=== PATIENT | female | born 1950 | race Caucasian/White ===

== ENCOUNTER 2021-11-02 09:37 | Day surgery (SDC) | payer MEDICARE, BC ==
[2021-11-02] MEDS ORDERED: Marcaine Mpf 0.5% Vial 30 Ml IJ ONE (09:38)
[2021-11-02] MEDS ORDERED: LIDOCAINE HCL 1% 50 MG/5 ML VL PF IJ ONE (09:38)
[2021-11-02] MEDS ORDERED: Depo-Medrol 40 MG/ML IM ONE (09:38)
--- NOTE | 2021-11-02 12:27 | XRAY ---
5 seconds fluoroscopy time in surgery for intra-articular injection of the right knee.
--- NOTE | 2021-11-02 12:27 | XRAY ---
Indication: Right knee injection. Intraoperative fluoroscopy provided for 5 seconds. Single digital spot image submitted for interpretation demonstrates needle tip projecting over the right femur intracondylar notch. Small amount of contrast injected for needle tip placement. Correlate with intraoperative findings/report.
== END 2021-11-02 11:30 | disposition home or self-care (01) ==
LOC: SDC-PAIN 09:37
PROVIDERS: ATTEND Psychiatry & Neurology Pain Medicine
DX: M17.11 Unilateral primary osteoarthritis, right knee (principal); E11.9 Type 2 diabetes mellitus without complications; Z79.899 Other long term (current) drug therapy
CPT/HCPCS: 20610; 73560; 77002; 82947; J1030; J2001; Q9966

== ENCOUNTER 2022-06-28 13:31 | Observation (INO) | payer MEDICARE, BC ==
[2022-06-28 14:17] LABS: Absolute Neutrophil Ct (ANC) 4.43 x10^3/uL (1.4-6.9); BASOPHIL % 0.6 % (0.0-0.4); Basophil (Absolute #) 0.05 x10^3/uL (0-0.4); Eosinophil % 4.5 % (0.00-5.0); Eosinophil (Absolute #) 0.36 x10^3/uL (0-0.5); Hematocrit 44.7 % (35-47); Hemoglobin 14.6 g/dL (12.0-16.0); IMMATURE GRAN # 0.03 x10^3u/L (0.00-0.03); IMMATURE GRAN % 0.4 % (0.00-0.4); Lymphocyte (Absolute #) 2.59 x10^3/uL (1.0-4.6); Lymphocytes % 32.1 % (24.0-44.0); Mean Cell Volume 87.1 fL (78-100); Mean Corpuscular Hemoglobin 28.5 pg (26-32); Mean Corpuscular Hgb Concent. 32.7 g/dL (32-36); Mean Platelet Volume 11.3 fL (7.5-11.0); Monocyte (Absolute #) 0.62 x10^3/uL (0.0-1.3); Monocytes % 7.7 % (0.0-12.0); Neutrophil % 54.7 % (36.0-66.0); Platelet Count 282 x10^3/uL (150-450); Red Blood Count 5.13 x10^6/uL (4.1-5.4); Red Cell Distribution Width 15.3 % (11.5-14.0); White Blood Count 8.1 x10^3/uL (4.0-10.5)
--- NOTE | 2022-06-28 14:20 | XRAY ---
Indication: Dizziness, nausea, and headache. Multiple contiguous axial images obtained through the head without contrast. Comparison: March 30, 2022 Again age-appropriate global atrophy and mild periventricular degenerative micro-ischemia bilaterally. No acute intracranial hemorrhage, abnormal extra-axial fluid collection, or mass effect. Fourth ventricle is midline without hydrocephalus. Bony calvarium intact. Visualized paranasal sinuses and mastoid air cells are clear. Impression: Continued nonacute senile brain.
[2022-06-28 14:37] LABS: ALBUMIN 4.2 g/dL (3.5-5.0); ALKALINE PHOSPHATASE 67 U/L (38-126); ANION GAP 16.3 MEQ/L (5-15); BLOOD UREA NITROGEN 10 mg/dL (7-17); CHLORIDE 101 mmol/L (98-107); Calcium 9.7 mg/dL (8.4-10.2); Carbon Dioxide 22 mmol/L (22-30); Creatinine 1 0.69 mg/dL (0.52-1.04); EST GLOMERULAR FILTRATION RATE > 60.0 ML/MIN; Glucose 302 mg/dL (74-106); Potassium 3.7 mmol/L (3.5-5.1); SGOT/AST 37 U/L (14-36); SGPT/ALT 23 U/L (0-35); SODIUM 135 mmol/L (137-145); Total Protein 6.9 g/dL (6.3-8.2)
[2022-06-28] MEDS ORDERED: Sodium Chloride 0.9% 500 ML 500 ML IV ONE ×2 (14:54→14:59)
--- NOTE | 2022-06-28 14:57 | ERPHSYRPT ---
- History of Present Illness Time Seen by Provider: 06/28/22 13:55 Source: patient Exam Limitations: no limitations Patient Subjective Stated Complaint: PT states "I came to get a shot in my knee, a steroid and my sugar was to high, I told them I was a little dizzy and they told me I needed to come here." Triage Nursing Assessment: PT presented alert and oriented X 3, skin pwd. Pt ambulates with a slow gait and a limp. PT able to speak in clear full sentences pt in no apparent respiratory distress. Physician History: Patient 72-year-old female history of diabetes presents to our ED from infusion center for evaluation of dizziness. Patient states she went to the infusion center today to obtain steroid injection of her knees. Patient told the nurse at the infusion center that she felt a little dizzy. The nurse brought patient to our ED for an evaluation. Patient states she no longer feels dizzy on exam. She felt dizzy when she was in her car. Currently asymptomatic. No chest pain or shortness of breath. No nausea vomiting or diaphoresis. No diarrhea. No rash. No trauma. No numbness tingling or weakness. Patient voices no other complaints or concerns at this time. Portions of this note were created with voice recognition technology. There may be grammatical, spelling, punctuation or sound alike errors Timing/Duration: today Severity: moderate Modifying Factors: Improves With: nothing Associated Symptoms: denies symptoms Allergies/Adverse Reactions: Iodinated Contrast Media [Iodinated Contrast Media - IV Dye] Allergy (Verified 01/06/16 09:28) Tightness of Throat Home Medications: Bisoprolol/Hydrochlorothiazide [Ziac 10-6.25 mg Tablet] 1 each PO DAILY 01/15/15 [History] Duloxetine HCl [Cymbalta] 60 mg PO BID 01/15/15 [History] Loratadine [Claritin] 5 mg PO DAILY 01/15/15 [History] Pravastatin Sodium 40 mg PO HS 01/15/15 [History] Amlodipine Besylate 5 mg [Norvasc 5 mg] 5 mg PO HS 01/06/16 [History] Hydrocodone/APAP 10/325 mg [Shipman 10/325 MG Tablet] 1 tab PO Q6H PRN PRN 06/27/16 [History] Dapagliflozin Propanediol [Farxiga] 10 mg PO DAILY 06/28/22 [History] Hx Tetanus, Diphtheria Vaccination/Date Given: Yes Hx Influenza Vaccination/Date Given: Yes Hx Pneumococcal Vaccination/Date Given: Yes Immunizations Up to Date: Yes Travel Risk - International Travel Have you traveled outside of the country in past 3 weeks: No - Coronavirus Screening Are you exhibiting any of the following symptoms?: No Close contact with a COVID-19 positive Pt in past 14-21 Days: No - Vaccine Status Have you recieved a Covid-19 vaccination: Yes [employer]: [employer] - Vaccination Dates Date of 2cond Vaccination (if applicable): 2020 - Review of Systems Constitutional: No Symptoms, No Fever, No Chills Eyes: No Symptoms Ears, Nose, & Throat: No Symptoms Respiratory: No Symptoms, No Cough, No Dyspnea Cardiac: No Symptoms, No Chest Pain, No Edema, No Syncope Abdominal/Gastrointestinal: No Symptoms, No Abdominal Pain, No Nausea, No Vomiting, No Diarrhea Genitourinary Symptoms: No Symptoms, No Dysuria Musculoskeletal: No Symptoms, No Back Pain, No Neck Pain Skin: No Symptoms, No Rash Neurological: No Symptoms, No Dizziness, No Focal Weakness, No Sensory Changes Psychological: No Symptoms Endocrine: No Symptoms Hematologic/Lymphatic: No Symptoms Immunological/Allergic: No Symptoms All Other Systems: Reviewed and Negative - Past Medical History Pertinent Past Medical History: Yes Neurological History: Migraines ENT History: No Pertinent History Cardiac History: High Cholesterol, Hypertension Respiratory History: No Pertinent History Endocrine Medical History: No Pertinent History Musculoskeletal History: Arthritis GI Medical History: Other, GERD History: No Pertinent History Psycho-Social History: Depression Female Reproductive Disorders: Endometriosis Other Medical History: states takes cymbalta for pelvic pain - Past Surgical History Past Surgical History: Yes Neuro Surgical History: No Pertinent History Cardiac: No Pertinent History Respiratory: No Pertinent History Gastrointestinal: No Pertinent History Genitourinary: No Pertinent History Musculoskeletal: Orthopedic Surgery Female Surgical History: Hysterectomy Other Surgical History: tubal ,open lap.abd,colonoscopy, left knee replacement Apr 2013 - Social History Smoking Status: Never smoker Exposure to second hand smoke: No Drug Use: none Patient Lives Alone: Yes - Nursing Vital Signs Nursing Vital Signs: Initial Vital Signs Temperature 97.2 F 06/28/22 13:41 Pulse Rate 71 06/28/22 13:41 Respiratory Rate 20 06/28/22 13:41 Blood Pressure 157/80 06/28/22 13:41 O2 Sat by Pulse Oximetry 96 06/28/22 13:41 Pain Scale Pain Intensity 0 - Physical Exam General Appearance: no apparent distress, alert Eye Exam: PERRL/EOMI, eyes nml inspection Ears, Nose, Throat Exam: normal ENT inspection, TMs normal, pharynx normal, moist mucous membranes Neck Exam: normal inspection, non-tender, supple, full range of motion Respiratory Exam: normal breath sounds, lungs clear, No respiratory distress Cardiovascular Exam: regular rate/rhythm, normal heart sounds, normal peripheral pulses Gastrointestinal/Abdomen Exam: soft, normal bowel sounds, No tenderness, No mass Back Exam: normal inspection, normal range of motion, No CVA tenderness, No vertebral tenderness Extremity Exam: normal inspection, normal range of motion, pelvis stable Neurologic Exam: alert, oriented x 3, cooperative, normal mood/affect, nml cerebellar function, nml station & gait, sensation nml, No motor deficits Skin Exam: normal color, warm, dry, No rash Lymphatic Exam: No adenopathy SpO2 Interpretation: normal SpO2: 97 O2 Delivery: Room Air - Course Nursing assessment & vital signs reviewed: Yes EKG Interpreted by Me: RATE (59), Sinus Rhythm, NORMAL AXIS, NORMAL INTERVALS - CT Exams Head CT Interpretation: Tele-radiologist Report (Nonacute senile brain) Ordered Tests: Active Orders 24 hr Category Date Time Status Media/Instructional Designer STAT Care 06/28/22 13:43 Active EKG-ER Only STAT Care 06/28/22 13:42 Active IV Insertion STAT Care 06/28/22 13:42 Active Pulse Oximetry (ED) STAT Care 06/28/22 13:42 Active HEAD WITHOUT CONTRAST [CT] Stat Exams 06/28/22 13:42 Completed CBC W DIFF Stat Lab 06/28/22 14:10 Completed CMP Stat Lab 06/28/22 14:10 Completed POCT GLUCOSE Stat Lab 06/28/22 13:12 Completed TROPONIN Q4H Lab 06/28/22 14:10 Completed TROPONIN Q4H Lab 06/28/22 17:45 Ordered TROPONIN Q4H Lab 06/28/22 21:45 Ordered UA W/RFX UR CULTURE Stat Lab 06/28/22 16:30 Completed Transfer Order Routine Transfer 06/28/22 Ordered Medication Summary Discontinued Medications Generic Name Dose Route Start Last Admin Trade Name Freq PRN Reason Stop Dose Admin Aspirin 324 mg 06/28/22 18:53 Aspirin 81 Mg Tab.Chew PO 06/28/22 18:54 STAT ONE Sodium Chloride 500 mls @ 500 mls/hr 06/28/22 14:54 06/28/22 16:06 Sodium Chloride 0.9% 500 Ml IV 06/28/22 15:53 Infused .Q1H ONE Infusion Sodium Chloride Confirm 06/28/22 14:59 Sodium Chloride 0.9% 500 Ml Administered 06/28/22 15:00 Dose 500 mls @ ud IV .STK-MED ONE Lab/Rad Data: Laboratory Result Diagrams 06/28/22 14:10 06/28/22 14:10 Laboratory Results 06/28/22 06/28/22 06/28/22 Range/Units 16:30 14:10 14:10 WBC (4.0-10.5) x10^3/uL RBC (4.1-5.4) x10^6/uL Hgb (12.0-16.0) g/dL Hct (35-47) % MCV (78-100) fL MCH (26-32) pg MCHC (32-36) g/dL RDW (11.5-14.0) % Plt Count (150-450) x10^3/uL MPV (7.5-11.0) fL Gran % (36.0-66.0) % Immature Gran % (Auto) (0.00-0.4) % Nucleat RBC Rel Count (0.00-0.1) % Eos # (Auto) (0-0.5) x10^3/uL Immature Gran # (Auto) (0.00-0.03) x10^3u/L Absolute Lymphs (auto) (1.0-4.6) x10^3/uL Absolute Monos (auto) (0.0-1.3) x10^3/uL Absolute Nucleated RBC (0.00-0.01) x10^3u/L Lymphocytes % (24.0-44.0) % Monocytes % (0.0-12.0) % Eosinophils % (0.00-5.0) % Basophils % (0.0-0.4) % Absolute Granulocytes (1.4-6.9) x10^3/uL Basophils # (0-0.4) x10^3/uL Sodium 135 L (137-145) mmol/L Potassium 3.7 (3.5-5.1) mmol/L Chloride 101 (98-107) mmol/L Carbon Dioxide 22 (22-30) mmol/L Anion Gap 16.3 H (5-15) MEQ/L BUN 10 (7-17) mg/dL Creatinine 0.69 (0.52-1.04) mg/dL Estimated GFR > 60.0 ML/MIN Glucose 302 H (74-106) mg/dL POC Glucometer (74 to 106) mg/dL Calcium 9.7 (8.4-10.2) mg/dL Total Bilirubin 0.70 (0.2-1.3) mg/dL AST 37 H (14-36) U/L ALT 23 (0-35) U/L Alkaline Phosphatase 67 (38-126) U/L Troponin I < 0.012 (0.000-0.034) ng/mL Serum Total Protein 6.9 (6.3-8.2) g/dL Albumin 4.2 (3.5-5.0) g/dL Urine Color Yellow (Yellow) Urine Appearance Cloudy A (Clear) Urine pH 5.5 (4.6-8.0) Ur Specific [place] >=1.030 A (1.005-1.030) Urine Protein Negative (Negative) Urine Glucose (UA) >=1000 A (Negative) mg/dL Urine Ketones Negative (Negative) Urine Blood Negative (Negative) Urine Nitrite Negative (Negative) Urine Bilirubin Negative (Negative) Urine Urobilinogen 0.2 (0.2) mg/dL Ur Leukocyte Esterase Negative (Negative) U Hyaline Cast (Auto) NONE SEEN (0-2) /LPF Urine Microscopic RBC 0-2 (0-5) /HPF Urine Microscopic WBC 0-2 (0-5) /HPF Ur Epithelial Cells None Seen (None Seen) /HPF Urine Bacteria None Seen (None Seen) /HPF Urine Culture Reflexed NO (NO) 06/28/22 06/28/22 Range/Units 14:10 13:12 WBC 8.1 (4.0-10.5) x10^3/uL RBC 5.13 (4.1-5.4) x10^6/uL Hgb 14.6 (12.0-16.0) g/dL Hct 44.7 (35-47) % MCV 87.1 (78-100) fL MCH 28.5 (26-32) pg MCHC 32.7 (32-36) g/dL RDW 15.3 H (11.5-14.0) % Plt Count 282 (150-450) x10^3/uL MPV 11.3 H (7.5-11.0) fL Gran % 54.7 (36.0-66.0) % Immature Gran % (Auto) 0.4 (0.00-0.4) % Nucleat RBC Rel Count 0.0 (0.00-0.1) % Eos # (Auto) 0.36 (0-0.5) x10^3/uL Immature Gran # (Auto) 0.03 (0.00-0.03) x10^3u/L Absolute Lymphs (auto) 2.59 (1.0-4.6) x10^3/uL Absolute Monos (auto) 0.62 (0.0-1.3) x10^3/uL Absolute Nucleated RBC 0.00 (0.00-0.01) x10^3u/L Lymphocytes % 32.1 (24.0-44.0) % Monocytes % 7.7 (0.0-12.0) % Eosinophils % 4.5 (0.00-5.0) % Basophils % 0.6 (0.0-0.4) % Absolute Granulocytes 4.43 (1.4-6.9) x10^3/uL Basophils # 0.05 (0-0.4) x10^3/uL Sodium (137-145) mmol/L Potassium (3.5-5.1) mmol/L Chloride (98-107) mmol/L Carbon Dioxide (22-30) mmol/L Anion Gap (5-15) MEQ/L BUN (7-17) mg/dL Creatinine (0.52-1.04) mg/dL Estimated GFR ML/MIN Glucose (74-106) mg/dL POC Glucometer 315 H (74 to 106) mg/dL Calcium (8.4-10.2) mg/dL Total Bilirubin (0.2-1.3) mg/dL AST (14-36) U/L ALT (0-35) U/L Alkaline Phosphatase (38-126) U/L Troponin I (0.000-0.034) ng/mL Serum Total Protein (6.3-8.2) g/dL Albumin (3.5-5.0) g/dL Urine Color (Yellow) Urine Appearance (Clear) Urine pH (4.6-8.0) Ur Specific [place] (1.005-1.030) Urine Protein (Negative) Urine Glucose (UA) (Negative) mg/dL Urine Ketones (Negative) Urine Blood (Negative) Urine Nitrite (Negative) Urine Bilirubin (Negative) Urine Urobilinogen (0.2) mg/dL Ur Leukocyte Esterase (Negative) U Hyaline Cast (Auto) (0-2) /LPF Urine Microscopic RBC (0-5) /HPF Urine Microscopic WBC (0-5) /HPF Ur Epithelial Cells (None Seen) /HPF Urine Bacteria (None Seen) /HPF Urine Culture Reflexed (NO) - Progress Progress: improved Progress Note: Patient is a 72-year-old female presents emergency department as a referral from the infusion center for evaluation of possible TIA. Patient states that she had an episode of dizziness unsteady gait and blurred vision that lasted several minutes upon her arrival to our [facility] for an infusion center procedure. Patient told the infusion center nurse about her experience and patient was brought to our ED for possible TIA. Patient has a history of diabetes hypertension obesity. Physical exam is normal. No neurologic findings to speak of. Patient's complaint was acute. Complexity of complaint is moderate. Comorbidities as stated above. Work-up entails EKG CT head CBC CMP COVID troponin UA. CT head shows no acute intracranial pathology. EKG is normal sinus rhythm. CBC CMP essentially nonremarkable. CMP reveals hyperglycemia. UA shows glucosuria. Troponin negative. Patient received a dose of aspirin and normal saline. We consulted telemetry neuro who feels patient had a TIA. Teleneurologist is advising admission. Case discussed with Dr. Stoll who accepts admission to observation. Plan of care discussed with patient. She agrees to admission to [facility] for further evaluation and treatment. Level of EM service provided was high. Complexity of problem addressed is moderate. Complexity of data reviewed and analyzed is moderate. Risk of complication and or risk of morbidity/mortality of patient management is low. No critical care time. Patient served as independent historian. There was some delay in performing the teleneurology consultation due to issues pertaining to our communication with the teleneurologist. Patient's working diagnosis at this time is a TIA. Hyperglycemia. Patient voices no other complaints or concerns at this time. Portions of this note were created with voice recognition technology. There may be grammatical, spelling, punctuation or sound alike errors 06/28/22 18:56 Counseled pt/family regarding: lab results, diagnosis, need for follow-up, rad results Medical Desision Making - Diagnostic Testing Diagnostic Testing: Diagnostic tests were ordered,analyzed, and reviewed by me and used in my medica l decision making for this patient. Radiologic studies (if ordered) were read by me initially then discussed with the radiologist . - Departure Departure Disposition: Home Clinical Impression: Dizziness, Hyperglycemia, Hyponatremia, Glucosuria, TIA (transient ischemic attack) Condition: Stable Critical Care Time: No Referrals: RUSSEL SPICER [Primary Care Provider] - Follow up/PCP as directed
[2022-06-28 16:43] LABS: Appearance Cloudy (Clear); Bacteria None Seen /HPF (None Seen); Bilirubin Negative (Negative); Blood Negative (Negative); Epithelial Cells None Seen /HPF (None Seen); Glucose, Urine >=1000 mg/dL (Negative); Hyaline Casts NONE SEEN /LPF (0-2); Ketones Negative (Negative); Leukocyte Esterase Negative (Negative); Nitrite Negative (Negative); Ph 5.5 (4.6-8.0); Protein,Urine Dip Negative (Negative); RBC 0-2 /HPF (0-5); Specific Gravity >=1.030 (1.005-1.030); Urobilinogen 0.2 mg/dL (0.2); WBC 0-2 /HPF (0-5)
[2022-06-28 16:46] LABS: ADD URINE CULTURE? NO (NO)
[2022-06-28] MEDS ORDERED: BABY ASPIRIN 81 MG CHEW PO ONE (18:53)
[2022-06-28] MEDS ORDERED: TYLENOL EXTRA STRENGTH 500 MG ONE (19:25)
[2022-06-28] MEDS ORDERED: TYLENOL EXTRA STRENGTH 500 MG PO ONE (19:26)
[2022-06-28 20:09] LABS: INFLUENZA A NEGATIVE (NEGATIVE); INFLUENZA B NEGATIVE (NEGATIVE); RESPIRATORY SYNCTIAL VIRUS NEGATIVE (Negative); SARS-CoV-2 Xpert Express NEGATIVE (NEGATIVE)
[2022-06-28] MEDS ORDERED: MILK OF MAGNESIA 30 ML PO PRN (20:55)
[2022-06-28] MEDS ORDERED: TYLENOL 325 MG PO PRN (20:55)
[2022-06-28] MEDS ORDERED: Zofran 4 MG/2 ML VIAL IV PRN (20:55)
[2022-06-28] MEDS ORDERED: Senokot-S Tablet PO PRN (20:55)
[2022-06-28] MEDS ORDERED: MAALOX ES 30 ML UNIT DOSE PO PRN (20:55)
[2022-06-29] MEDS ORDERED: AMITRIPTYLINE 25 MG TABLET PO SCH (00:40)
[2022-06-29] MEDS ORDERED: NORVASC 5 MG PO SCH (00:40)
[2022-06-29] MEDS ORDERED: CLONIDINE 0.1 MG TABLET PO SCH (00:41)
[2022-06-29] MEDS ORDERED: Cymbalta 30 MG Capsule PO ONE (00:42)
[2022-06-29] MEDS ORDERED: ATARAX 25 MG PO SCH (00:45)
[2022-06-29] MEDS ORDERED: Zanaflex 4 MG PO PRN (00:46)
[2022-06-29] MEDS ORDERED: ZOCOR 20MG PO SCH (00:50)
[2022-06-29] MEDS: NORCO 5/325 MG PO PRN ×2 (01:27→08:45)
[2022-06-29 06:13] LABS: Risk Ratio 2.9
[2022-06-29 07:24] VITALS: BP 144/87; PULSE 120; O2SAT 98
--- NOTE | 2022-06-29 08:28 | PCM.HP ---
History of Present Illness - Chief Complaint Chief Complaint: TIA, dizziness History of Present Illness: is a 72 year old female who came as an outpatient for an injection with elevated blood sugar and feeling dizzy yesterday so was sent to the ER, she denies any slurred speech, no numbness, tingling, weakness or paresthesias. She denies any complaints this morning other than being tired because she didn't sleep well overnight and insists to go home as early as possible today. She has had previous cardiac cath which was negative with Dr Yu, no hx of CVA or TIA. glucosuria was noted on admit but expected with jardiance. - Review of Systems Constitutional: No Fever, No Chills Respiratory: No Cough, No Short Of Breath Cardiac: No Chest Pain, No Edema, No Syncope Genitourinary Symptoms: No Dysuria Neurological: Dizziness, No Focal Weakness, No Gait Changes, No Paralysis, No Parasthesia, No Sensory Changes All Other Systems: Reviewed and Negative Medications & Allergies Home Medications: Home Medication List Bisoprolol/Hydrochlorothiazide [Ziac 10-6.25 mg Tablet] 1 each PO DAILY 01/15/15 [History Confirmed 06/28/22] Duloxetine HCl [Cymbalta] 60 mg PO BID 01/15/15 [History Confirmed 06/28/22] Loratadine [Claritin] 5 mg PO DAILY 01/15/15 [History Confirmed 06/28/22] Pravastatin Sodium 40 mg PO HS 01/15/15 [History Confirmed 06/28/22] Amlodipine Besylate 5 mg [Norvasc 5 mg] 2.5 mg PO HS 01/06/16 [History Confirmed 06/28/22] Hydrocodone/APAP 10/325 mg [[place] 10/325 MG Tablet] 0.5 tab PO Q6H PRN PRN 06/27/16 [History Confirmed 06/28/22] Amitriptyline HCl 25 mg [Amitriptyline 25 mg Tablet] 25 mg PO HS 06/28/22 [History Confirmed 06/28/22] Atorvastatin Calcium [Lipitor 40Mg] 40 mg PO DAILY 06/28/22 [History Confirmed 06/28/22] Doxepin HCl 10 mg PO HS 06/28/22 [History Confirmed 06/28/22] Empagliflozin [Jardiance] 10 mg PO DAILY 06/28/22 [History Confirmed 06/28/22] Oxybutynin Chloride [Oxybutynin Chloride ER] 15 mg PO DAILY 06/28/22 [History Confirmed 06/28/22] Pregabalin 75 mg PO BID 06/28/22 [History Confirmed 06/28/22] Tizanidine HCl 4 mg [Zanaflex 4 MG] 4 mg PO TID PRN PRN 06/28/22 [History Confirmed 06/28/22] cloNIDine HCL [Clonidine HCl] 0.1 mg PO BID 06/28/22 [History Confirmed 06/28/22] hydrOXYzine HCL [Hydroxyzine HCl] 25 mg PO HS 06/28/22 [History Confirmed 06/28/22] lisinopriL [Lisinopril] 5 mg PO DAILY 06/28/22 [History Confirmed 06/28/22] Allergies/Adverse Reactions: Allergies Allergy/AdvReac Type Severity Reaction Status Date / Time Iodinated Contrast Media Allergy Tightness Verified 01/06/16 09:28 [Iodinated Contrast Media - of Throat IV Dye] - Past Medical History Past Medical History: Yes Neurological History: Migraines ENT History: Cataracts Cardiac History: High Cholesterol, Hypertension Respiratory History: No Pertinent History Endocrine Medical History: Diabetes Type II Musculoskelatal History: Arthritis GI Medical History: No Pertinent History History: No Pertinent History Pyscho-Social History: Depression Reproductive Disorders: Endometriosis Comment: states takes cymbalta for pelvic pain - Female History Are you now?: No - Past Surgical History Past Surgical History: Yes Neuro Surgical History: No Pertinent History Cardiac History: No Pertinent History Respiratory Surgery: No Pertinent History GI Surgical History: Appendectomy Genitourinary Surgical Hx: No Pertinent History Musculskeletal Surgical Hx: Orthopedic Surgery Female Surgical History: Hysterectomy Other Surgical History: tubal ,open lap.abd,colonoscopy, left knee replacement Apr 2013 - Social History Smoking Status: Never smoker Exposure to second hand smoke: No Alcohol: None Drug Use: none - Physical Exam Vital Signs: Vital Signs - 24 hr Temp Pulse Resp BP Pulse Ox 06/29/22 07:24 97.5 F 120 H 17 144/87 98 06/29/22 04:00 97.3 F 78 18 126/63 95 06/29/22 00:00 18 06/28/22 23:10 98.4 F 76 20 95/56 96 06/28/22 21:21 97.8 F 75 20 134/87 96 06/28/22 20:00 66 18 178/79 95 06/28/22 19:02 97 06/28/22 19:00 70 171/115 96 06/28/22 18:08 70 19 148/70 95 06/28/22 17:05 67 23 150/75 93 L 06/28/22 16:06 59 L 19 164/88 93 L 06/28/22 14:40 97.2 F 53 L 20 98/58 97 06/28/22 14:17 93 L 06/28/22 13:41 97.2 F 71 20 157/80 96 General Appearance: no apparent distress, obese Neurologic Exam: alert, oriented x 3, cooperative, pattern grader II-XII nml as tested, normal mood/affect, nml cerebellar function, sensation nml, No motor deficits, No motor weakness, No slurred speech Respiratory Exam: normal breath sounds, lungs clear, No respiratory distress Cardiovascular Exam: regular rate/rhythm, normal heart sounds, normal peripheral pulses Gastrointestinal/Abdomen Exam: soft, normal bowel sounds, No tenderness, No mass Extremity Exam: normal inspection, normal range of motion, pelvis stable Skin Exam: normal color, warm, dry, No rash Results - Labs Lab/Micro Results: Lab Results-Last 24 Hours 06/28/22 06/28/22 06/28/22 Range/Units 13:12 14:10 14:10 WBC 8.1 (4.0-10.5) x10^3/uL RBC 5.13 (4.1-5.4) x10^6/uL Hgb 14.6 (12.0-16.0) g/dL Hct 44.7 (35-47) % MCV 87.1 (78-100) fL MCH 28.5 (26-32) pg MCHC 32.7 (32-36) g/dL RDW 15.3 H (11.5-14.0) % Plt Count 282 (150-450) x10^3/uL MPV 11.3 H (7.5-11.0) fL Gran % 54.7 (36.0-66.0) % Immature Gran % (Auto) 0.4 (0.00-0.4) % Nucleat RBC Rel Count 0.0 (0.00-0.1) % Eos # (Auto) 0.36 (0-0.5) x10^3/uL Immature Gran # (Auto) 0.03 (0.00-0.03) x10^3u/L Absolute Lymphs (auto) 2.59 (1.0-4.6) x10^3/uL Absolute Monos (auto) 0.62 (0.0-1.3) x10^3/uL Absolute Nucleated RBC 0.00 (0.00-0.01) x10^3u/L Lymphocytes % 32.1 (24.0-44.0) % Monocytes % 7.7 (0.0-12.0) % Eosinophils % 4.5 (0.00-5.0) % Basophils % 0.6 (0.0-0.4) % Absolute Granulocytes 4.43 (1.4-6.9) x10^3/uL Basophils # 0.05 (0-0.4) x10^3/uL Sodium 135 L (137-145) mmol/L Potassium 3.7 (3.5-5.1) mmol/L Chloride 101 (98-107) mmol/L Carbon Dioxide 22 (22-30) mmol/L Anion Gap 16.3 H (5-15) MEQ/L BUN 10 (7-17) mg/dL Creatinine 0.69 (0.52-1.04) mg/dL Estimated GFR > 60.0 ML/MIN Glucose 302 H (74-106) mg/dL POC Glucometer 315 H (74 to 106) mg/dL Calcium 9.7 (8.4-10.2) mg/dL Total Bilirubin 0.70 (0.2-1.3) mg/dL AST 37 H (14-36) U/L ALT 23 (0-35) U/L Alkaline Phosphatase 67 (38-126) U/L Troponin I (0.000-0.034) ng/mL Serum Total Protein 6.9 (6.3-8.2) g/dL Albumin 4.2 (3.5-5.0) g/dL Triglycerides (30-150) mg/dL Cholesterol (50-200) mg/dL LDL Cholesterol (30-100) mg/dL HDL Cholesterol (40-60) mg/dL Heart Disease Risk Ratio Urine Color (Yellow) Urine Appearance (Clear) Urine pH (4.6-8.0) Ur Specific [place] (1.005-1.030) Urine Protein (Negative) Urine Glucose (UA) (Negative) mg/dL Urine Ketones (Negative) Urine Blood (Negative) Urine Nitrite (Negative) Urine Bilirubin (Negative) Urine Urobilinogen (0.2) mg/dL Ur Leukocyte Esterase (Negative) U Hyaline Cast (Auto) (0-2) /LPF Urine Microscopic RBC (0-5) /HPF Urine Microscopic WBC (0-5) /HPF Ur Epithelial Cells (None Seen) /HPF Urine Bacteria (None Seen) /HPF Urine Culture Reflexed (NO) Influenza Type A Ag (NEGATIVE) Influenza Type B Ag (NEGATIVE) RSV (PCR) (Negative) SARS-CoV-2 (PCR) (NEGATIVE) 06/28/22 06/28/22 06/28/22 Range/Units 14:10 16:30 19:20 WBC (4.0-10.5) x10^3/uL RBC (4.1-5.4) x10^6/uL Hgb (12.0-16.0) g/dL Hct (35-47) % MCV (78-100) fL MCH (26-32) pg MCHC (32-36) g/dL RDW (11.5-14.0) % Plt Count (150-450) x10^3/uL MPV (7.5-11.0) fL Gran % (36.0-66.0) % Immature Gran % (Auto) (0.00-0.4) % Nucleat RBC Rel Count (0.00-0.1) % Eos # (Auto) (0-0.5) x10^3/uL Immature Gran # (Auto) (0.00-0.03) x10^3u/L Absolute Lymphs (auto) (1.0-4.6) x10^3/uL Absolute Monos (auto) (0.0-1.3) x10^3/uL Absolute Nucleated RBC (0.00-0.01) x10^3u/L Lymphocytes % (24.0-44.0) % Monocytes % (0.0-12.0) % Eosinophils % (0.00-5.0) % Basophils % (0.0-0.4) % Absolute Granulocytes (1.4-6.9) x10^3/uL Basophils # (0-0.4) x10^3/uL Sodium (137-145) mmol/L Potassium (3.5-5.1) mmol/L Chloride (98-107) mmol/L Carbon Dioxide (22-30) mmol/L Anion Gap (5-15) MEQ/L BUN (7-17) mg/dL Creatinine (0.52-1.04) mg/dL Estimated GFR ML/MIN Glucose (74-106) mg/dL POC Glucometer (74 to 106) mg/dL Calcium (8.4-10.2) mg/dL Total Bilirubin (0.2-1.3) mg/dL AST (14-36) U/L ALT (0-35) U/L Alkaline Phosphatase (38-126) U/L Troponin I < 0.012 < 0.012 (0.000-0.034) ng/mL Serum Total Protein (6.3-8.2) g/dL Albumin (3.5-5.0) g/dL Triglycerides (30-150) mg/dL Cholesterol (50-200) mg/dL LDL Cholesterol (30-100) mg/dL HDL Cholesterol (40-60) mg/dL Heart Disease Risk Ratio Urine Color Yellow (Yellow) Urine Appearance Cloudy A (Clear) Urine pH 5.5 (4.6-8.0) Ur Specific [place] >=1.030 A (1.005-1.030) Urine Protein Negative (Negative) Urine Glucose (UA) >=1000 A (Negative) mg/dL Urine Ketones Negative (Negative) Urine Blood Negative (Negative) Urine Nitrite Negative (Negative) Urine Bilirubin Negative (Negative) Urine Urobilinogen 0.2 (0.2) mg/dL Ur Leukocyte Esterase Negative (Negative) U Hyaline Cast (Auto) NONE SEEN (0-2) /LPF Urine Microscopic RBC 0-2 (0-5) /HPF Urine Microscopic WBC 0-2 (0-5) /HPF Ur Epithelial Cells None Seen (None Seen) /HPF Urine Bacteria None Seen (None Seen) /HPF Urine Culture Reflexed NO (NO) Influenza Type A Ag (NEGATIVE) Influenza Type B Ag (NEGATIVE) RSV (PCR) (Negative) SARS-CoV-2 (PCR) (NEGATIVE) 06/28/22 06/28/22 06/28/22 Range/Units 19:20 21:16 23:00 WBC (4.0-10.5) x10^3/uL RBC (4.1-5.4) x10^6/uL Hgb (12.0-16.0) g/dL Hct (35-47) % MCV (78-100) fL MCH (26-32) pg MCHC (32-36) g/dL RDW (11.5-14.0) % Plt Count (150-450) x10^3/uL MPV (7.5-11.0) fL Gran % (36.0-66.0) % Immature Gran % (Auto) (0.00-0.4) % Nucleat RBC Rel Count (0.00-0.1) % Eos # (Auto) (0-0.5) x10^3/uL Immature Gran # (Auto) (0.00-0.03) x10^3u/L Absolute Lymphs (auto) (1.0-4.6) x10^3/uL Absolute Monos (auto) (0.0-1.3) x10^3/uL Absolute Nucleated RBC (0.00-0.01) x10^3u/L Lymphocytes % (24.0-44.0) % Monocytes % (0.0-12.0) % Eosinophils % (0.00-5.0) % Basophils % (0.0-0.4) % Absolute Granulocytes (1.4-6.9) x10^3/uL Basophils # (0-0.4) x10^3/uL Sodium (137-145) mmol/L Potassium (3.5-5.1) mmol/L Chloride (98-107) mmol/L Carbon Dioxide (22-30) mmol/L Anion Gap (5-15) MEQ/L BUN (7-17) mg/dL Creatinine (0.52-1.04) mg/dL Estimated GFR ML/MIN Glucose (74-106) mg/dL POC Glucometer 184 H (74 to 106) mg/dL Calcium (8.4-10.2) mg/dL Total Bilirubin (0.2-1.3) mg/dL AST (14-36) U/L ALT (0-35) U/L Alkaline Phosphatase (38-126) U/L Troponin I < 0.012 (0.000-0.034) ng/mL Serum Total Protein (6.3-8.2) g/dL Albumin (3.5-5.0) g/dL Triglycerides (30-150) mg/dL Cholesterol (50-200) mg/dL LDL Cholesterol (30-100) mg/dL HDL Cholesterol (40-60) mg/dL Heart Disease Risk Ratio Urine Color (Yellow) Urine Appearance (Clear) Urine pH (4.6-8.0) Ur Specific [place] (1.005-1.030) Urine Protein (Negative) Urine Glucose (UA) (Negative) mg/dL Urine Ketones (Negative) Urine Blood (Negative) Urine Nitrite (Negative) Urine Bilirubin (Negative) Urine Urobilinogen (0.2) mg/dL Ur Leukocyte Esterase (Negative) U Hyaline Cast (Auto) (0-2) /LPF Urine Microscopic RBC (0-5) /HPF Urine Microscopic WBC (0-5) /HPF Ur Epithelial Cells (None Seen) /HPF Urine Bacteria (None Seen) /HPF Urine Culture Reflexed (NO) Influenza Type A Ag NEGATIVE (NEGATIVE) Influenza Type B Ag NEGATIVE (NEGATIVE) RSV (PCR) NEGATIVE (Negative) SARS-CoV-2 (PCR) NEGATIVE (NEGATIVE) 06/29/22 06/29/22 Range/Units 05:39 07:00 WBC (4.0-10.5) x10^3/uL RBC (4.1-5.4) x10^6/uL Hgb (12.0-16.0) g/dL Hct (35-47) % MCV (78-100) fL MCH (26-32) pg MCHC (32-36) g/dL RDW (11.5-14.0) % Plt Count (150-450) x10^3/uL MPV (7.5-11.0) fL Gran % (36.0-66.0) % Immature Gran % (Auto) (0.00-0.4) % Nucleat RBC Rel Count (0.00-0.1) % Eos # (Auto) (0-0.5) x10^3/uL Immature Gran # (Auto) (0.00-0.03) x10^3u/L Absolute Lymphs (auto) (1.0-4.6) x10^3/uL Absolute Monos (auto) (0.0-1.3) x10^3/uL Absolute Nucleated RBC (0.00-0.01) x10^3u/L Lymphocytes % (24.0-44.0) % Monocytes % (0.0-12.0) % Eosinophils % (0.00-5.0) % Basophils % (0.0-0.4) % Absolute Granulocytes (1.4-6.9) x10^3/uL Basophils # (0-0.4) x10^3/uL Sodium (137-145) mmol/L Potassium (3.5-5.1) mmol/L Chloride (98-107) mmol/L Carbon Dioxide (22-30) mmol/L Anion Gap (5-15) MEQ/L BUN (7-17) mg/dL Creatinine (0.52-1.04) mg/dL Estimated GFR ML/MIN Glucose (74-106) mg/dL POC Glucometer 224 H (74 to 106) mg/dL Calcium (8.4-10.2) mg/dL Total Bilirubin (0.2-1.3) mg/dL AST (14-36) U/L ALT (0-35) U/L Alkaline Phosphatase (38-126) U/L Troponin I (0.000-0.034) ng/mL Serum Total Protein (6.3-8.2) g/dL Albumin (3.5-5.0) g/dL Triglycerides 103 (30-150) mg/dL Cholesterol 158 (50-200) mg/dL LDL Cholesterol 71 (30-100) mg/dL HDL Cholesterol 55 (40-60) mg/dL Heart Disease Risk Ratio 2.9 Urine Color (Yellow) Urine Appearance (Clear) Urine pH (4.6-8.0) Ur Specific [place] (1.005-1.030) Urine Protein (Negative) Urine Glucose (UA) (Negative) mg/dL Urine Ketones (Negative) Urine Blood (Negative) Urine Nitrite (Negative) Urine Bilirubin (Negative) Urine Urobilinogen (0.2) mg/dL Ur Leukocyte Esterase (Negative) U Hyaline Cast (Auto) (0-2) /LPF Urine Microscopic RBC (0-5) /HPF Urine Microscopic WBC (0-5) /HPF Ur Epithelial Cells (None Seen) /HPF Urine Bacteria (None Seen) /HPF Urine Culture Reflexed (NO) Influenza Type A Ag (NEGATIVE) Influenza Type B Ag (NEGATIVE) RSV (PCR) (Negative) SARS-CoV-2 (PCR) (NEGATIVE) Accuchecks Date 06/29/22 Time 07:25 - Radiology Impressions Radiology Exams & Impressions: Radiology Procedures Category Date Time Status HEAD WITHOUT CONTRAST [CT] Stat Exams 06/28/22 13:42 Completed MRA BRAIN WITHOUT CONTRAST [MRI] Routine Exams 06/29/22 08:00 Ordered MRA NECK WITHOUT CONTRAST [MRI] Routine Exams 06/29/22 08:00 Ordered MRI BRAIN W/O CONTRAST [MRI] Routine Exams 06/29/22 08:00 Ordered - Other Procedures and Tests Respiratory Therapy 06/30/22 05:00 EKG ROUTINE 07/01/22 05:00 EKG ROUTINE Assessment/Plan (1) TIA (transient ischemic attack) Current Visit: Yes Status: Acute Assessment & Plan: symptoms seem very unlikely to be vascular in origin, if MRI negative no changes. she is on statin therapy, elevated blood glucose will need addressed Code(s): G45.9 - TRANSIENT CEREBRAL ISCHEMIC ATTACK, UNSPECIFIED (2) Dizziness Current Visit: Yes Status: Acute Assessment & Plan: likely related to hyperglycemia, no focal neuro findings and so far workup is negative, MRI pending. home if negative Code(s): R42 - DIZZINESS AND GIDDINESS (3) Hyperglycemia Current Visit: Yes Status: Acute Assessment & Plan: a1c ordered and pending, will likely increase jardiance at time of discharge and have her f/u with Dr Ochoa her PCP Code(s): R73.9 - HYPERGLYCEMIA, UNSPECIFIED
--- NOTE | 2022-06-29 08:32 | PCM.DCORD ---
- Discharge Disposition: Home, Self-Care Condition: Stable Prescriptions: Continue Pravastatin Sodium 40 mg PO HS Loratadine [Claritin] 5 mg PO DAILY Bisoprolol/Hydrochlorothiazide [Ziac 10-6.25 mg Tablet] 1 each PO DAILY Duloxetine HCl [Cymbalta] 60 mg PO BID Amlodipine Besylate 5 mg [Norvasc 5 mg] 2.5 mg PO HS Hydrocodone/APAP 10/325 mg [[place] 10/325 MG TableT] 0.5 tab PO Q6H PRN PRN PRN Reason: Pain lisinopriL [Lisinopril] 5 mg PO DAILY hydrOXYzine HCL [Hydroxyzine HCl] 25 mg PO HS cloNIDine HCL [Clonidine HCl] 0.1 mg PO BID Tizanidine HCl 4 mg [Zanaflex 4 MG] 4 mg PO TID PRN PRN PRN Reason: muscle relaxant Pregabalin 75 mg PO BID Oxybutynin Chloride [Oxybutynin Chloride ER] 15 mg PO DAILY Empagliflozin [Jardiance] 10 mg PO DAILY Doxepin HCl 10 mg PO HS Atorvastatin Calcium [Lipitor 40Mg] 40 mg PO DAILY Amitriptyline HCl 25 mg [Amitriptyline 25 mg Tablet] 25 mg PO HS Follow up with: [facility] [Primary Care Provider] - 1 Week
== END 2022-06-29 07:04 | disposition home or self-care (01) ==
LOC: EDSTATUS 13:31 → ED 13:31 → MED SURG 20:52
PROVIDERS: ADMIT Family Medicine; ATTEND Family Medicine
DX: G45.9 Transient cerebral ischemic attack, unspecified (principal); R42 Dizziness and giddiness; E11.65 Type 2 diabetes mellitus with hyperglycemia; E78.5 Hyperlipidemia, unspecified; I10 Essential (primary) hypertension; Z79.899 Other long term (current) drug therapy; Z20.828 Contact with and (suspected) exposure to other viral communicable diseases
CPT/HCPCS: 0241U; 36000; 36415; 70450; 80053; 80061; 81001; 82947; 83036; 83721; 84484; 85025; 93005; 93041; 93268; 94760; 99285; G0378; J2405; A9270-GY

== ENCOUNTER 2022-11-22 14:31 | Day surgery (SDC) | payer MEDICARE, BC ==
[2022-11-22] MEDS ORDERED: LIDOCAINE HCL 1% 50 MG/5 ML VL PF IJ ONE (14:32)
[2022-11-22] MEDS ORDERED: BUPIVACAINE 0.5% VIAL IJ ONE (14:32)
[2022-11-22] MEDS ORDERED: Depo-Medrol 40 MG/ML IM ONE (14:32)
--- NOTE | 2022-11-22 19:19 | XRAY ---
Indication: Right knee injection. Intraoperative fluoroscopy provided for 6 seconds. Single digital spot images submitted for interpretation demonstrates needle tip projecting over the right femur intercondylar notch. Small amount of contrast injected for needle tip placement. Correlate with intraoperative findings/report.
--- NOTE | 2022-11-23 10:13 | XRAY ---
6 seconds of fluoroscopy was used in surgery for a right intra-articular knee injection.
== END 2022-11-22 17:17 | disposition home or self-care (01) ==
LOC: SDC-PAIN 14:31
PROVIDERS: ATTEND Psychiatry & Neurology Pain Medicine
DX: M17.11 Unilateral primary osteoarthritis, right knee (principal); E11.9 Type 2 diabetes mellitus without complications; Z79.899 Other long term (current) drug therapy
CPT/HCPCS: 20610; 73560; 77002; 82947; J1030; J2001; Q9966